=== PATIENT | male | born 1955 | race Hispanic/Latino ===

== ENCOUNTER 2017-10-13 06:08 | Day surgery (SDC) | payer MEDICARE ==
[2015-05-27 15:51] VITALS: PULSE 121
[2017-01-29 14:54] VITALS: BMI 34.4
[2017-10-13] MEDS ORDERED: Propofol 10 mg/ml Inj (20 ML) ONE (06:59)
[2017-10-13] MEDS ORDERED: Succinylcholine 200 mg/10 ml Inj IV ONE (07:00)
[2017-10-13] MEDS ORDERED: Midazolam 2 MG/2 ML VIAL ONE (07:00)
[2017-10-13] MEDS ORDERED: Rocuronium 10 mg/ml (5 ml) ONE (07:00)
[2017-10-13] MEDS ORDERED: ePHEDrine 50 mg/ml Inj ONE (07:01)
[2017-10-13] MEDS ORDERED: MethylPREDNISolone Depo 40 mg/ml Inj ONE (07:23)
[2017-10-13] MEDS ORDERED: methylPREDNISolone Depo 80 mg/ml Inj ONE (07:23)
[2017-10-13] MEDS ORDERED: Iohexol 300 100 ML IJ ONE (07:24)
[2017-10-13] MEDS ORDERED: Bacitracin Ointment 30 GM TUBE ONE (07:24)
[2017-10-13] MEDS ORDERED: Lidocaine 1% Inj (20ml) ONE (07:24)
[2017-10-13] MEDS ORDERED: Bupivacaine 0.5% Inj(30mL) ONE (07:24)
[2017-10-13 09:58] LABS: FLUID TYPE SYNOVIAL FLUID
[2017-10-13] MEDS: Lactated Ringer's 1,000 ML IV ONE (10:27)
[2017-10-13 10:30] LABS: SF GROSS APPEARANCE CLOUDY (CLEAR); SYNOVIAL FLUID COMMENT BLOODY
[2017-10-13] MEDS: HYDROmorphone 0.5 mg/0.5 ml ISec IVP PRN ×3 (10:53→12:15)
[2017-10-13 11:46] LABS: SYNOVIAL FLUID MONO/MACROPHAGE 0 % (0-0)
[2017-10-13 11:50] VITALS: RESP 20
--- NOTE | 2017-10-13 12:26 | RAD ---
PROCEDURE: Fluoroscopy up to 1 hr. HISTORY: HIP ASP COMPARISON: None TECHNIQUE: Total fluoroscopic time (continuous mode) utilized during the procedure: 3.9 seconds. Total exam DLP: (mGy): 0.49. FINDINGS: Submitted images from the current procedure: 2.0 IMPRESSION: Less than 1 hr fluoroscopic time utilized during performance of the procedure.
[2017-10-13] MEDS ORDERED: Oxycodone/Acetaminophen 5/325 mg Tab PO PRN (12:49)
--- NOTE | 2017-10-13 12:53 | PCM.SURG1 ---
Surgeon's Initial Post Op Note - Surgeon's Notes Surgeon: Genny Esteban MD Van Helper: Kae HARRIS Type of Anesthesia: General Endo Anesthesia Administered By: Dr. Suresh Pre-Operative Diagnosis: Left hip wound dehiscence Operative Findings: same Post-Operative Diagnosis: smae Operation Performed: 1. Left hip I&D. 2. partial bursectomy/synovecomy. 3. Interpretation of fluoroscopic images Specimen/Specimens Removed: fluid for cx Estimated Blood Loss: EBL {In ML}: 20 Blood Products Given: N/A Drains Used: No Drains Post-Op Condition: Fair Date of Surgery/Procedure: 10/13/17 Time of Surgery/Procedure: 12:56 Results - Vital Signs Recent Vital Signs: Last Vital Signs Temp 97.1 F L 10/13/17 11:40 Pulse 76 10/13/17 11:40 Resp 20 10/13/17 11:40 BP 136/80 10/13/17 11:40 Pulse Ox 98 10/13/17 11:40 - Labs Labs: Laboratory Results - last 24 hr 10/13/17 10/13/17 08:12 09:56 Fluid Type Synovial fluid Synovial WBC 89.0 Synovial RBC 97222.0 H Synovial Neutrophils 69.0 H Synovial Lymphocytes 31.0 H Synov Monos/Macrophage 0 Synovial Fluid Comment Bloody Blood Type B POSITIVE Antibody Screen Negative BBK History Checked Patient has bt - Impressions Impression: [place] [employer]ITY MANAGER patient report reviewed, last CDS 03/2017 for percocet. Patient counseled on the risks of addiction, physical or psychological dependence, and overdose associated with opioid drugs and the danger of taking opioid drugs with alcohol and other central nervous system depressants, and cautioned patient on storage and disposal.
[2017-10-13] MEDS ORDERED: HYDROmorphone 0.5 mg/0.5 ml ISec IVP PRN (13:17)
--- NOTE | 2017-10-13 14:55 | RAD ---
PROCEDURE: Left Hip X-ray Radiographs. HISTORY: s/p hip I D, pt in PACU COMPARISON: 05/31/2015. FINDINGS: BONES: No acute findings. No evidence of orthopedic hardware failure. JOINTS: Left MIGUELITO in satisfactory position and alignment. SOFT TISSUES: Normal. OTHER FINDINGS: None. IMPRESSION: No acute findings related to/accounting for the clinical presentation.
[2017-10-13 15:17] VITALS: BP 149/82; PULSE 75; TEMP 98; O2SAT 97
--- NOTE | 2017-10-13 21:23 | OP ---
PROCEDURE DATE: 10/13/2017 PREOPERATIVE DIAGNOSES: Wound dehiscence, trochanteric bursitis of the left hip, status post complex revision left total hip replacement in 2015. POSTOPERATIVE DIAGNOSES: Wound dehiscence, trochanteric bursitis of the left hip, status post complex revision left total hip replacement in 2015. PROCEDURES: 1. Incision and drainage of the left hip. 2. Partial bursectomy and synovectomy. 3. Excision of skin, subcutaneous tissue and muscle. 4. Manipulation of the hip under anesthesia. 5. Positioning of fluoroscope interpretation of video images. SURGEON: Mau Esteban MD MANAGER DIGITAL: Macy Khanna, certified registered nursing medical receptionist medical assistant. TYPE OF ANESTHESIA: General endotracheal anesthesia. ANESTHESIA ADMINISTERED BY: Oelg Suresh MD COMPLICATIONS: No complications. DRAINS: No drains. SPECIMENS REMOVED: Fluid for biopsy and stat Gram stain and the trochanteric bursa and synovium. ESTIMATED BLOOD LOSS: Approximately 20 mL. No blood products given. POSTOPERATIVE CONDITION: Stable. TIME OF SURGERY: 12:56. OPERATIVE INDICATIONS: Philipp Padgett is a 62-year-old gentleman who presents after a complex total hip revision in 2014. The patient was doing quite well. He had developed pain in the area of the bursa and a bursitis. The bursitis caused the wound dehiscence. The patient presents today for incision and drainage. Pros, cons, risks, and benefits were discussed at length. Concept of possible later revision, possibility of deep sepsis discussed. On sequential examination, there is no evidence of deep sepsis in terms of the fact that the patient had no pain on range of motion of the hip. After having obtained informed consent, after thoroughly discussing the pros, cons, risks, and benefits of surgical approach, possibility of mechanical failure and infection, possibility of later secondary or tertiary surgery was discussed. The patient wished the surgery to be accomplished. OPERATIVE PROCEDURE: After having obtained informed consent, after having identified side, site, and procedure, and critical pause/time-out, after the satisfactory induction of the anesthetic, the patient was placed in a direct lateral decubitus position with the left side up. The left lower extremity was prepped and free draped in usual fashion for extremity surgery. After having identified side, site, and procedure, and a critical pause/time-out, under the surgeon's direction, the fluoroscope was positioned. Video images were generated and therapeutic decisions were made therefrom. The left hip is taken through a range of motion. An incision is described 3 fingerbreadths distal to the wound dehiscence and 3 fingerbreadths proximal. Skin incision is carried down through the skin and subcutaneous tissue. The skin, subcutaneous tissues, and some muscle is removed. This was sent for biopsy. Immediately underlying is the area of the trochanteric bursa. The trochanteric bursa was excised. At this point in time, the fluid was aspirated and sent for stat Gram stain with number of white cells per high-power field, aerobic, anaerobic, AFB and fungal cultures. This having been accomplished, the wound was thoroughly irrigated with the Pulsavac. Again, the hip had been manipulated and the positioning of fluoroscope interpretation of video images was accomplished. This having been accomplished, the wound was thoroughly irrigated. Closures was in layers with interrupted Vicryl and monica. Hudson Perez compression dressing was applied. Mau Esteban MD
== END 2017-10-13 16:15 | disposition home or self-care (01) ==
LOC: H.OPSURG 06:08
PROVIDERS: ATTEND Orthopaedic Surgery
DX: M25.552 Pain in left hip (principal); M70.62 Trochanteric bursitis, left hip; L92.9 Granulomatous disorder of the skin and subcutaneous tissue, unspecified; Z96.642 Presence of left artificial hip joint; I48.91 Unspecified atrial fibrillation; I10 Essential (primary) hypertension; K21.9 Gastro-esophageal reflux disease without esophagitis
CPT/HCPCS: 27043; 27062; 36415; 73502; 76000; 86850; 86900; 87015; 87070; 87075; 87101; 87116; 87206; 88305; 89051; 97161; G8978; G8979; G8980; J0330; J0690; J1170; J2001; J2250; J2405; J2704; J3010; J7030; J7120; Q9967

== ENCOUNTER 2017-10-22 11:44 | Day surgery (SDC) | payer MEDICARE ==
[2015-05-27 15:51] VITALS: PULSE 121
[2017-10-22 12:41] VITALS: BMI 34.2
[2017-10-22 12:43] VITALS: RESP 18
[2017-10-22] MEDS ORDERED: Lidocaine 1% Inj (20ml) ONE (13:39)
--- NOTE | 2017-10-22 13:58 | CP.SDSHP ---
Same Day Surgery H & P - History Proposed Procedure: PICC placement Pre-Op Diagnosis: Infection requiring rodent exterminator IV abx - Allergies Allergies: Allergies No Known Allergies Allergy (Verified 10/22/17 12:44) - Physical Exam Vital Signs: Vital Signs 10/22/17 10/22/17 12:42 12:54 Temperature 98 F Pulse Rate 78 Respiratory 18 18 Rate Blood Pressure 149/76 O2 Sat by Pulse 97 Oximetry Mental Status: Alert & Oriented x3 - Impression Impression: Pt with infection requiring picc for abx. Plan right arm picc placement Pt. Evaluated Today:Candidate for Anesthesia & Procedure: No - Date & Time Date: 10/22/17 Time: 13:25 Short Stay Discharge - Short Stay Discharge Admitting Diagnosis/Reason for Visit: IV ANTIBIOTICS TREATMENT, MRSA Disposition: REHAB FACILITY/REHAB UNIT Referrals: Billy Brown MD [Primary Care Provider] -
--- NOTE | 2017-10-22 13:59 | PCM.SURG1 ---
Surgeon's Initial Post Op Note - Surgeon's Notes Surgeon: Philipp Leger MD Quarry Worker: NONE Type of Anesthesia: Local Pre-Operative Diagnosis: Infection Operative Findings: US showed a patent right basilic vein Post-Operative Diagnosis: Infection Operation Performed: Single lumen picc, 37 cm, right basilic vein. Tip is in the SVC. Specimen/Specimens Removed: none Estimated Blood Loss: EBL {In ML}: 2 Blood Products Given: N/A Drains Used: No Drains Post-Op Condition: Fair Date of Surgery/Procedure: 10/22/17 Time of Surgery/Procedure: 13:55
--- NOTE | 2017-10-22 14:09 | VASCULAR ---
PROCEDURE: Date of procedure: 10/22/2017 Procedure: 1. Placement of a right arm PICC with ultrasound and fluoroscopic guidance, CPT 70438 2. PICC tip confirmation with spot radiograph and is in the superior vena cava Medications: 1 percent lidocaine Total Fluoro time: 4 seconds Radiation: 0.69 MGy EBL: 2 cc HISTORY: Infection requiring long-term IV antibiotics TECHNIQUE: Following informed consent and procedure time-out, the patient was placed supine on the interventional table and the right arm prepped and draped in the usual sterile fashion. Ultrasound showed a patent and compressible right basilic vein. After the skin was anesthetized with lidocaine, the basilic vein was accessed with micro micropuncture technique using ultrasound guidance. A guidewire was then advanced under fluoroscopic guidance into the superior vena cava. An image documenting ultrasound guidance for vascular access was permanently saved. The length of the single-lumen 4 Turkmen PICC was trimmed to 37 centimeters and advanced through a peel-away sheath. The PICC was position with tip of PICC confirm a spot radiograph the superior vena cava. The PICC was secured to the patient's skin. The PICC was flushed. A biopatch and sterile dressing was applied. IMPRESSION: Placement of a single-lumen 4 Turkmen PICC trimmed to 37 centimeters via right basilic vein. The tip of the PICC is confirmed with spot radiograph and is in the superior vena cava.
[2017-10-22 14:18] VITALS: BP 169/97; PULSE 77; TEMP 98.4; O2SAT 96
== END 2017-10-22 14:25 | disposition home or self-care (01) ==
LOC: H.OPSURG 11:44
PROVIDERS: ATTEND Orthopaedic Surgery
DX: Z45.2 Encounter for adjustment and management of vascular access device (principal); A49.02 Methicillin resistant Staphylococcus aureus infection, unspecified site
CPT/HCPCS: 36569; 76937; 77001; A4310; C1751

== ENCOUNTER 2017-10-24 18:16 | Inpatient (IN) | payer MEDICARE ==
[2017-10-24 18:17] VITALS: PULSE 121; BMI 34.2
[2017-10-24 21:54] LABS: BASO # 0.1 K/uL (0.0-0.2); EOS # 0.4 K/uL (0.0-0.7); EOS % 4.7 % (0.0-4.0); HEMOGLOBIN 12.3 g/dL (12.0-18.0); LYMPH # 1.9 K/uL (1.0-4.3); LYMPH % 20.1 % (20.0-40.0); MEAN CELL VOLUME 81.5 fl (80.0-94.0); MEAN CORPUSCULAR HEMOGLOBIN 26.3 pg (27.0-31.0); MEAN CORPUSCULAR HGB CONC 32.3 g/dL (33.0-37.0); MEAN PLATELET VOLUME 6.7 fl (7.2-11.7); MONO # 1.3 K/uL (0.0-0.8); MONO % 13.3 % (0.0-10.0); NEUT # 5.8 K/uL (1.8-7.0); NEUT % 60.9 % (50.0-75.0); RBC 4.68 Mil/uL (4.40-5.90); RED CELL DISTRIBUTION WIDTH 15.8 % (11.5-14.5); WHITE BLOOD COUNT 9.5 K/uL (4.8-10.8)
[2017-10-24 22:11] LABS: ALBUMIN 4.3 g/dL (3.5-5.0); ALT/SGPT 15 U/L (21-72); AST/SGOT 15 U/L (17-59); BLOOD UREA NITROGEN 13 mg/dl (9-20); CALCIUM 9.5 mg/dL (8.4-10.2); GFR AFRICAN-AMERICAN > 60; GFR NON-AFRICAN AMERICAN > 60
--- NOTE | 2017-10-24 22:15 | ED PDOC ---
Lower Extremity Pain/Injury Time Seen by Provider: 10/24/17 19:31 Chief Complaint (Nursing): Lower Extremity Problem/Injury Chief Complaint (Provider): Left Hip Replacement/Arthroplasty Additional History Per: Patient Additional Complaint(s): This is 62 y/o male with PMH of HTN, A-flutter, S/p left hip replacement/ arthroplasty sent to the ED by PMD for PRISCILLA left hip arthroplasty tomorrow and surgical clearance. Patient admits hip pain but controlled on pain medications. Denies any dizziness, SOB, chest pain, abdominal pain or urinary symptoms. Past Medical History Vital Signs: Last Vital Signs Temp 98.2 F 10/24/17 19:11 Pulse 79 10/24/17 21:59 Resp 18 10/24/17 19:11 BP 160/84 H 10/24/17 21:59 Pulse Ox 99 10/24/17 19:11 - Medical History PMH: Arthritis, Cardia Arrhythmia (A-FIB), CHF, HTN, Hypercholesterolemia Denies: HIV, Chronic Kidney Disease - Surgical History Other surgeries: S/p left hip replacement - Family History Family History: States: Unknown Family Hx - Social History Current smoker - smoking cessation education provided: No Alcohol: None Drugs: Denies - Immunization History Hx Tetanus Toxoid Vaccination: Yes Hx Influenza Vaccination: Yes Hx Pneumococcal Vaccination: Yes - Home Medications Home Medications: Ambulatory Orders Medication Instructions Recorded Zolpidem Tartrate [Ambien] 5 mg PO HS #0 tab 05/31/15 Metoprolol Succinate [Toprol XL] 50 mg PO BID 10/13/17 Warfarin [Coumadin] 6 mg PO DAILY 10/13/17 oxyCODONE/Acetaminophen [Percocet 1 ea PO Q4H PRN #10 tab 10/13/17 5/325 mg Tab] - Allergies Allergies/Adverse Reactions: Allergies Allergy/AdvReac Type Severity Reaction Status Date / Time No Known Allergies Allergy Verified 10/24/17 21:25 Wells Criteria for PE - Wells Criteria for Pulmonary Embolism Clinical Signs and Symptoms of DVT: No P.E is #1 Diagnosis, or Equally Likely: No Heart Rate >100: No Immobilization at least 3 days;Surgery previous 4 weeks: Yes Previous, objectively diagnosed PE or DVT: No Hemoptysis: No Malignancy w/treatment within 6 months, or palliative: No Total Score: 1.5 Review of Systems Constitutional: Negative for: Fever Eyes: Negative for: Pain ENT: Negative for: Ear Pain Cardiovascular: Negative for: Chest Pain, Palpitations, Orthopnea Respiratory: Negative for: Cough, Shortness of Breath, Hemoptysis Gastrointestinal: Negative for: Nausea, Vomiting, Abdominal Pain Musculoskeletal: Negative for: Neck Pain, Shoulder Pain Skin: Negative for: Rash Neurological: Negative for: Weakness, Numbness, Incoordination, Change in Speech Physical Exam - Reviewed Nursing Documentation Reviewed: Yes Vital Signs Reviewed: Yes - Physical Exam Appears: Positive for: No Acute Distress Head Exam: Positive for: ATRAUMATIC, NORMAL INSPECTION, NORMOCEPHALIC Skin: Positive for: Normal Color, Warm, Dry Eye Exam: Positive for: Normal appearance ENT: Positive for: Normal ENT Inspection Neck: Positive for: Normal Cardiovascular/Chest: Positive for: Regular Rate, Rhythm, Chest Non Tender Respiratory: Positive for: Normal Breath Sounds Gastrointestinal/Abdominal: Positive for: Normal Exam Back: Positive for: Normal Inspection Extremity: Positive for: Other (S/p left hip arthroplasy wound ) - Laboratory Results Result Diagrams: 10/24/17 21:45 10/24/17 21:45 - ECG O2 Sat by Pulse Oximetry: 99 - Progress ED Course And Treament: 62 y/o male for PRISCILLA left hip arthroplasty tomorrow - CBC, CMP, PT/PTT, UA - ESR - Type&Screen - NPO after Midnight - EKG, CXR - Hip 2V Xray - Warfarin held - Vanco, Metoprolol and Percocet given - Consult: Ortho, Cardio, ID - Admit to the floor, Case discussed with Dr. Hankins Case discussed with Dr. Prater Medical Decision Making Medical Decision Making: S/P left hip replacement/arthroplasty L hip non healing wound post op Disposition - Clinical Impression Clinical Impression: Hip pain, Status post left hip replacement, Left hip postoperative wound infection - Patient ED Disposition Is Patient to be Admitted: Yes Discussed With : Andrey Hankins Doctor Will See Patient In The: ED - Disposition Disposition Time: 22:54 Condition: STABLE
[2017-10-24 22:22] LABS: URINE BILIRUBIN NEGATIVE (NEGATIVE); URINE BLOOD NEGATIVE (NEGATIVE); URINE CLARITY SLIGHTY-CLOUDY (Clear); URINE COLOR STRAW (YELLOW); URINE GLUCOSE (UA) NEG (Normal); URINE LEUKOCYTE ESTERASE NEG Leu/uL (Negative); URINE NITRATE NEGATIVE (NEGATIVE); URINE PROTEIN 30 mg/dL (NEGATIVE); URINE UROBILINOGEN 0.2-1.0 mg/dL (0.2-1.0)
[2017-10-24] MEDS ORDERED: Oxycodone/Acetaminophen 5/325 mg Tab PO STA (22:24)
--- NOTE | 2017-10-24 22:26 | CP.PCM.HP ---
History of Present Illness - History of Present Illness History of Present Illness: CC: L hip non healing wound post op HPI: This is a 62 y/o male with a flutter on coumadin and HTN who comes in for likely revision of L MIGUELITO due to infection. Patient states he had L hip scraped 1 week ago, was doing well until a few days ago with the hip wound opened and began draining. Denies f/c/n/v/d. Denies CP/SOB. Pain is controlled. Normally patient is functional and capable of doing ADLs prior to the current illness. ROS: 14 systems reviewed, negative other than HPI MHx: A flutter on coumadin, HTN SHx: L hip replacement, revision; hemorrhoidectomy Allergies: Some abx, but patient cannot remember Medications: as per med rec Family Hx: Reviewed, no significant findings Social Hx: Lives at home with family, no significant tobacco or EtOH use Surrogate: , info on chart Present on Admission - Present on Admission Any Indicators Present on Admission: No Past Patient History - Infectious Disease Hx of Infectious Diseases: None - Tetanus Immunizations Tetanus Immunization: Unknown - Past Medical History & Family History Past Medical History?: Yes - Past Social History Smoking Status: Never Smoked - CARDIAC Hx Cardia Arrhythmia: Yes (A-FIB) Hx Congestive Heart Failure: Yes Hx Hypercholesterolemia: Yes Hx Hypertension: Yes - PULMONARY Hx Respiratory Disorders: No - NEUROLOGICAL Hx Neurological Disorder: No - HEENT Hx HEENT Problems: No - RENAL Hx Chronic Kidney Disease: No - ENDOCRINE/METABOLIC Hx Endocrine Disorders: No - HEMATOLOGICAL/ONCOLOGICAL Hx Human Immunodeficiency Virus (HIV): No - INTEGUMENTARY Hx Dermatological Problems: No - MUSCULOSKELETAL/RHEUMATOLOGICAL Hx Arthritis: Yes - GASTROINTESTINAL Hx Gastrointestinal Disorders: No Hx Hemorrhoids: Yes - GENITOURINARY/GYNECOLOGICAL Hx Genitourinary Disorders: No - PSYCHIATRIC Hx Substance Use: No - SURGICAL HISTORY Hx Surgeries: Yes Hx Angiogram: Yes (2007) Hx Cardiac Catheterization: Yes (THERMAL ABLATION IN [place] 5 YRS. AGO) Hx Joint Replacement: Yes (LEFT THR 2008) Hx Orthopedic Surgery: Yes Other/Comment: CARDIAC ABLATION MARCH 2015 .HEMORROIDECTOMY. REVISION LEFT HIP - ANESTHESIA Hx Anesthesia: Yes Hx Anesthesia Reactions: No Hx Malignant Hyperthermia: No Meds Allergies/Adverse Reactions: Allergies Allergy/AdvReac Type Severity Reaction Status Date / Time No Known Allergies Allergy Verified 10/24/17 21:25 Physical Exam - Constitutional Appears: No Acute Distress - Head Exam Head Exam: ATRAUMATIC, NORMOCEPHALIC - Eye Exam Eye Exam: EOMI, PERRL - ENT Exam ENT Exam: Mucous Membranes Moist - Neck Exam Neck exam: Positive for: Full Rom - Respiratory Exam Respiratory Exam: Clear to Auscultation Bilateral, NORMAL BREATHING PATTERN - Cardiovascular Exam Cardiovascular Exam: REGULAR RHYTHM, +S1, +S2 - GI/Abdominal Exam GI & Abdominal Exam: Normal Bowel Sounds, Soft - Extremities Exam Additional comments: L hip wound under dressing with drainage - Neurological Exam Neurological exam: Alert, CN II-XII Intact, Oriented x3 - Psychiatric Exam Psychiatric exam: Normal Affect, Normal Mood - Skin Skin Exam: Warm (area around wound with drainage) Results - Vital Signs Recent Vital Signs: Last Vital Signs Temp 98.2 F 10/24/17 19:11 Pulse 79 10/24/17 21:59 Resp 18 10/24/17 19:11 BP 160/84 H 10/24/17 21:59 Pulse Ox 99 10/24/17 22:15 - Labs Result Diagrams: 10/24/17 21:45 10/24/17 21:45 Labs: Laboratory Results - last 24 hr 10/24/17 10/24/17 10/24/17 21:14 21:45 21:45 WBC 9.5 RBC 4.68 Hgb 12.3 Hct 38.2 MCV 81.5 D MCH 26.3 L MCHC 32.3 L RDW 15.8 H Plt Count 400 D MPV 6.7 L Neut % (Auto) 60.9 Lymph % (Auto) 20.1 [place] % (Auto) 13.3 H Eos % (Auto) 4.7 H Baso % (Auto) 1.0 Neut # (Auto) 5.8 Lymph # (Auto) 1.9 [place] # (Auto) 1.3 H Eos # (Auto) 0.4 Baso # (Auto) 0.1 Sodium 143 Potassium 4.1 Chloride 102 Carbon Dioxide 27 Anion Gap 18 BUN 13 Creatinine 0.8 Est GFR ( Amer) > 60 Est GFR (Non-Af Amer) > 60 Random Glucose 111 H Calcium 9.5 Total Bilirubin 0.4 AST 15 L ALT 15 L D Alkaline Phosphatase 93 Total Protein 8.8 H Albumin 4.3 Globulin 4.5 H Albumin/Globulin Ratio 1.0 BBK History Checked Patient has bt - Imaging and Cardiology Chest x-ray Status: Image reviewed by me Assessment & Plan (1) Left hip prosthetic joint infection Assessment and Plan: 62 y/o male presenting with L hip non healing wound/infection. Pending OR in AM. 1) Left hip wound infection -Continue Vanco IV -Pain control per scale -Hold coumadin -NPO -ID consult (Yoel) in AM -Cardiology pre-op consult in AM -Plan for OR in AM with Carlito 2) A flutter -Hold coumadin -Cont Metoprolol 3) DVT PPx -- none for now; patient was on coumadin, INR still elevated Status: Acute (2) Atrial flutter Status: Chronic Priority: Medium (3) DVT prophylaxis Status: Acute Priority: Medium
[2017-10-24 22:28] LABS: INR 1.1 (0.9-1.2); PARTIAL THROMBOPLASTIN TIME 33.6 Seconds (25.6-37.1); PROTHROMBIN TIME 12.5 Seconds (9.8-13.1)
[2017-10-24] MEDS ORDERED: Oxycodone/Acetaminophen 5/325 mg Tab ONE (22:59)
[2017-10-25 06:39] LABS: BASO # 0.1 K/uL (0.0-0.2); BASO % 1.3 % (0.0-2.0); EOS # 0.3 K/uL (0.0-0.7); EOS % 5.8 % (0.0-4.0); HEMOGLOBIN 11.4 g/dL (12.0-18.0); LYMPH # 1.7 K/uL (1.0-4.3); LYMPH % 27.7 % (20.0-40.0); MEAN CELL VOLUME 80.4 fl (80.0-94.0); MEAN CORPUSCULAR HEMOGLOBIN 26.7 pg (27.0-31.0); MEAN CORPUSCULAR HGB CONC 33.2 g/dL (33.0-37.0); MEAN PLATELET VOLUME 6.8 fl (7.2-11.7); MONO # 0.9 K/uL (0.0-0.8); NEUT % 50.2 % (50.0-75.0); NRBC % 0.1 % (0.0-0.0); RBC 4.28 Mil/uL (4.40-5.90); RED CELL DISTRIBUTION WIDTH 16.2 % (11.5-14.5); WHITE BLOOD COUNT 6.1 K/uL (4.8-10.8)
[2017-10-25 06:52] LABS: BLOOD UREA NITROGEN 10 mg/dl (9-20); CALCIUM 8.9 mg/dL (8.4-10.2); GFR AFRICAN-AMERICAN > 60; GFR NON-AFRICAN AMERICAN > 60
[2017-10-25] MEDS: Metoprolol Succinate 50 mg XL Tab PO SCH ×2 (08:40→16:29)
--- NOTE | 2017-10-25 09:07 | CP.PCM.CON ---
History of Present Illness - History of Present Illness History of Present Illness: THE PATIENT IS A 62 YEAR OLD MALE WHO HAD A LEFT THR IN 2008 FOLLOWED BY A REVISION IN 2009 WITH RECURRENT INFECTIONS OF THE LEFT HIP INCLUDING MRSA INFECTIONS. THE PATIENT STATES THAT THE LEFT HIP WAS CLEANED OUT ABOUT 12 DAYS AGO BUT THE WOUND NOW OPENED ABOUT THREE DAYS AGO AND IS DRAINING AND IS PRESENTLY READMITTED FOR SURGERY AGAIN. HE ALSO HAS A HISTORY OF ATRIAL FLUTTER AND HYPERTENSION. HE WAS TREADED WITH WARFARIN WHICH IS BEING HELD. HE DENIES CHEST PAIN OR CAD. Past Patient History - Infectious Disease Hx of Infectious Diseases: None - Tetanus Immunizations Tetanus Immunization: Unknown - Past Medical History & Family History Past Medical History?: Yes - Past Social History Smoking Status: Heavy Smoker > 10 Cigarettes Daily - CARDIAC Hx Cardiac Disorders: Yes Hx Hypercholesterolemia: Yes Hx Hypertension: Yes - PULMONARY Hx Respiratory Disorders: No - NEUROLOGICAL Hx Neurological Disorder: No - HEENT Hx HEENT Problems: No - RENAL Hx Chronic Kidney Disease: No - ENDOCRINE/METABOLIC Hx Endocrine Disorders: No - HEMATOLOGICAL/ONCOLOGICAL Hx Blood Disorders: No Hx Human Immunodeficiency Virus (HIV): No - INTEGUMENTARY Hx Dermatological Problems: No - MUSCULOSKELETAL/RHEUMATOLOGICAL Hx Musculoskeletal Disorders: Yes Hx Arthritis: Yes Hx Falls: No - GASTROINTESTINAL Hx Gastrointestinal Disorders: Yes Hx Hemorrhoids: Yes - GENITOURINARY/GYNECOLOGICAL Hx Genitourinary Disorders: No - PSYCHIATRIC Hx Psychophysiologic Disorder: No Hx Substance Use: No - SURGICAL HISTORY Hx Surgeries: Yes Hx Angiogram: Yes (2007) Hx Cardiac Catheterization: Yes (THERMAL ABLATION IN [place] 5 YRS. AGO) Hx Joint Replacement: Yes (LEFT THR 2008) Hx Orthopedic Surgery: Yes Other/Comment: CARDIAC ABLATION MARCH 2015 .HEMORROIDECTOMY. REVISION LEFT HIP - ANESTHESIA Hx Anesthesia: Yes Hx Anesthesia Reactions: No Hx Malignant Hyperthermia: No Has any member of the family had a problem w/ anesthesia?: No Meds Allergies/Adverse Reactions: Allergies Allergy/AdvReac Type Severity Reaction Status Date / Time No Known Allergies Allergy Verified 10/24/17 21:25 - Medications Medications: Current Medications Vancomycin HCl 1 gm/ Sodium (Chloride) 250 mls @ 166.667 mls/hr IVPB Q12 PRISCILLA PRN Reason: Protocol Last Admin: 10/25/17 08:40 Dose: 166.667 mls/hr Metoprolol Succinate (Toprol Xl) 50 mg PO BID [facility] Last Admin: 10/25/17 08:40 Dose: 50 mg Morphine Sulfate (Morphine) 1 mg IVP Q4 PRN PRN Reason: Pain, Mild (1-3) Morphine Sulfate (Morphine) 2 mg IVP Q4 PRN PRN Reason: Pain, moderate (4-7) Physical Exam - Respiratory Exam Respiratory Exam: Clear to Auscultation Bilateral - Cardiovascular Exam Cardiovascular Exam: REGULAR RHYTHM, +S1, +S2 - Additional Findings Additional findings: EKG ATRIAL FLLUTTER WITH MODERATE RATE INR 1.1 Results - Vital Signs Recent Vital Signs: Last Vital Signs Temp 97.7 F 10/25/17 08:31 Pulse 76 10/25/17 08:40 Resp 19 10/25/17 08:31 BP 154/84 H 10/25/17 08:40 Pulse Ox 96 10/25/17 08:31 - Labs Result Diagrams: 10/25/17 05:30 10/25/17 05:30 Labs: Laboratory Results - last 24 hr 10/24/17 10/24/17 10/24/17 21:14 21:45 21:45 WBC 9.5 RBC 4.68 Hgb 12.3 Hct 38.2 MCV 81.5 D MCH 26.3 L MCHC 32.3 L RDW 15.8 H Plt Count 400 D MPV 6.7 L Neut % (Auto) 60.9 Lymph % (Auto) 20.1 Brooke % (Auto) 13.3 H Eos % (Auto) 4.7 H Baso % (Auto) 1.0 Neut # (Auto) 5.8 Lymph # (Auto) 1.9 Brooke # (Auto) 1.3 H Eos # (Auto) 0.4 Baso # (Auto) 0.1 ESR 81 H PT 12.5 INR 1.1 APTT 33.6 Sodium Potassium Chloride Carbon Dioxide Anion Gap BUN Creatinine Est GFR ( Amer) Est GFR (Non-Af Amer) Random Glucose Calcium Total Bilirubin AST ALT Alkaline Phosphatase Total Protein Albumin Globulin Albumin/Globulin Ratio Urine Color Urine Clarity Urine pH Ur Specific [place] Urine Protein Urine Glucose (UA) Urine Ketones Urine Blood Urine Nitrate Urine Bilirubin Urine Urobilinogen Ur Leukocyte Esterase Urine RBC (Auto) Urine Microscopic WBC Blood Type B POSITIVE Antibody Screen Negative BBK History Checked Patient has bt 10/24/17 10/24/17 10/25/17 21:45 21:50 05:30 WBC 6.1 RBC 4.28 L Hgb 11.4 L Hct 34.5 L MCV 80.4 MCH 26.7 L MCHC 33.2 RDW 16.2 H Plt Count 346 MPV 6.8 L Neut % (Auto) 50.2 Lymph % (Auto) 27.7 Brooke % (Auto) 15.0 H Eos % (Auto) 5.8 H Baso % (Auto) 1.3 Neut # (Auto) 3.0 Lymph # (Auto) 1.7 Brooke # (Auto) 0.9 H Eos # (Auto) 0.3 Baso # (Auto) 0.1 ESR PT INR APTT Sodium 143 Potassium 4.1 Chloride 102 Carbon Dioxide 27 Anion Gap 18 BUN 13 Creatinine 0.8 Est GFR ( Amer) > 60 Est GFR (Non-Af Amer) > 60 Random Glucose 111 H Calcium 9.5 Total Bilirubin 0.4 AST 15 L ALT 15 L D Alkaline Phosphatase 93 Total Protein 8.8 H Albumin 4.3 Globulin 4.5 H Albumin/Globulin Ratio 1.0 Urine Color Straw Urine Clarity Slighty-cloudy Urine pH 6.0 Ur Specific [place] 1.014 Urine Protein 30 Urine Glucose (UA) Neg Urine Ketones Negative Urine Blood Negative Urine Nitrate Negative Urine Bilirubin Negative Urine Urobilinogen 0.2-1.0 Ur Leukocyte Esterase Neg Urine RBC (Auto) 1 Urine Microscopic WBC 1 Blood Type Antibody Screen BBK History Checked 10/25/17 10/25/17 05:30 05:30 WBC RBC Hgb Hct MCV MCH MCHC RDW Plt Count MPV Neut % (Auto) Lymph % (Auto) Brooke % (Auto) Eos % (Auto) Baso % (Auto) Neut # (Auto) Lymph # (Auto) Brooke # (Auto) Eos # (Auto) Baso # (Auto) ESR PT INR APTT 32.0 Sodium 143 Potassium 3.6 Chloride 106 Carbon Dioxide 26 Anion Gap 15 BUN 10 Creatinine 0.7 L Est GFR ( Amer) > 60 Est GFR (Non-Af Amer) > 60 Random Glucose 106 Calcium 8.9 Total Bilirubin AST ALT Alkaline Phosphatase Total Protein Albumin Globulin Albumin/Globulin Ratio Urine Color Urine Clarity Urine pH Ur Specific [place] Urine Protein Urine Glucose (UA) Urine Ketones Urine Blood Urine Nitrate Urine Bilirubin Urine Urobilinogen Ur Leukocyte Esterase Urine RBC (Auto) Urine Microscopic WBC Blood Type Antibody Screen BBK History Checked Assessment & Plan - Assessment and Plan (Free Text) Assessment: LEFT THR IN 2008 AND REVISION IN 2009 WITH RECURRENT WOUND INFECTIONS. NOW WITH WOUND OPENING AND DRAINAGE. ATRIAL FLUTTER HYPERTENSION Plan: CONTINUE TO HOLD WARFARIN CONTINUE METOPROLOL AND IV ANTIBIOTICS THE PATIENT IS CLEARED FOR SURGERY
--- NOTE | 2017-10-25 09:27 | RAD ---
HISTORY: Medical clearance COMPARISON: Comparison made with chest radiograph 05/27/2015 TECHNIQUE: Chest PA and lateral FINDINGS: Re- demonstrated is an in situ right-sided PICC line with tip in the SVC. LUNGS: Minor bibasilar atelectasis or scarring left greater than right. There also appears to be minor biapical pleural thickening PLEURA: No significant pleural effusion identified. No pneumothorax apparent. CARDIOVASCULAR: Normal. OSSEOUS STRUCTURES: Mild multilevel degenerative spondylosis of the thoracic spine. VISUALIZED UPPER ABDOMEN: Normal. OTHER FINDINGS: None. IMPRESSION: Minor bibasilar atelectasis or scarring left greater than right
[2017-10-25] MEDS ORDERED: Midazolam 2 MG/2 ML VIAL ONE (10:49)
[2017-10-25] MEDS ORDERED: Propofol 10 mg/ml Inj (20 ML) ONE (10:49)
[2017-10-25] MEDS ORDERED: Etomidate 20 mg/10ml Inj IV ONE (10:49)
[2017-10-25] MEDS ORDERED: Lidocaine 4% (Laryng-O-Jet) Kit MM ONE (10:49)
[2017-10-25] MEDS ORDERED: Rocuronium 10 mg/ml (5 ml) ONE (11:06)
[2017-10-25] MEDS ORDERED: Absorbable Gelatin Sponge Size 100 ONE (11:12)
[2017-10-25] MEDS ORDERED: Bacitracin Ointment 30 GM TUBE ONE (11:12)
[2017-10-25] MEDS ORDERED: Thrombin Topical 5,000 Int Units Spray Kit ONE (11:12)
--- NOTE | 2017-10-25 11:28 | RAD ---
PROCEDURE: Left Hip X-ray Radiographs. HISTORY: Left hip Pain. No history of recent/ related trauma provided COMPARISON: 10/13/2017 study performed status post incision and drainage. FINDINGS: BONES: Stable appearance, position of left hip arthroplasty. No evidence of orthopedic hardware failure. JOINTS: Normal. SOFT TISSUES: Normal. OTHER FINDINGS: None. IMPRESSION: No acute findings related to/accounting for the clinical presentation. No significant interval change compared to the prior examination(s).
[2017-10-25] MEDS ORDERED: Lactated Ringer's 1,000 ML IV ONE ×2 (11:30→14:00)
[2017-10-25] MEDS ORDERED: Gentamicin 80 mg/2mL Inj. ONE (12:04)
[2017-10-25 13:18] LABS: FLUID TYPE SYNOVIAL FLUID
--- NOTE | 2017-10-25 13:35 | CARD ---
APPROVED REPORT EKG Measurement Heart [id number] NC 192P [id number] <Conclusion> Atrial flutter Abnormal ECG
--- NOTE | 2017-10-25 14:04 | CP.PCM.CON ---
History of Present Illness - History of Present Illness History of Present Illness: ID: 62 yo male CVC: Draing superficial wound L HIp (trochateric bursa) HPI: 62 yo male presents several yrs s/p revision (successful) chronic dislocation THR L. mPT doing quite well until several wks ago. p[t had sustained a fall, and began draing. Pt taken to OR within last 2 wks and I+D and partial trochanteric bursectomy accomplished. Ptg treated bY ID and IV abios were administrered for MRSA. Pt presents to ER with L superficial drainage L hip. pt admitted for repeat I+D, applx abio beads and wound vac. Review of Systems - Hematologic/Lymphatic Additional comments: PT COMPLAIONS OF NO PAIN IN HIP JOINT PROPER! HAS NEVER EXHIIBITED PAIN ON rom - NO CLINICAL COMPLAINTS OF DEEP SEPSIS, JUST SUPERFICIAL DRAINAGE1 Past Patient History - Infectious Disease Hx of Infectious Diseases: None - Tetanus Immunizations Tetanus Immunization: Unknown - Past Medical History & Family History Past Medical History?: Yes - Past Social History Smoking Status: Heavy Smoker > 10 Cigarettes Daily - CARDIAC Hx Cardiac Disorders: Yes Hx Hypercholesterolemia: Yes Hx Hypertension: Yes - PULMONARY Hx Respiratory Disorders: No - NEUROLOGICAL Hx Neurological Disorder: No - HEENT Hx HEENT Problems: No - RENAL Hx Chronic Kidney Disease: No - ENDOCRINE/METABOLIC Hx Endocrine Disorders: No - HEMATOLOGICAL/ONCOLOGICAL Hx Blood Disorders: No Hx Human Immunodeficiency Virus (HIV): No - INTEGUMENTARY Hx Dermatological Problems: No - MUSCULOSKELETAL/RHEUMATOLOGICAL Hx Musculoskeletal Disorders: Yes Hx Arthritis: Yes Hx Falls: No - GASTROINTESTINAL Hx Gastrointestinal Disorders: Yes Hx Hemorrhoids: Yes - GENITOURINARY/GYNECOLOGICAL Hx Genitourinary Disorders: No - PSYCHIATRIC Hx Psychophysiologic Disorder: No Hx Substance Use: No - SURGICAL HISTORY Hx Surgeries: Yes Hx Angiogram: Yes (2007) Hx Cardiac Catheterization: Yes (THERMAL ABLATION IN [place] 5 YRS. AGO) Hx Joint Replacement: Yes (LEFT THR 2008) Hx Orthopedic Surgery: Yes Other/Comment: CARDIAC ABLATION MARCH 2015 .HEMORROIDECTOMY. REVISION LEFT HIP - ANESTHESIA Hx Anesthesia: Yes Hx Anesthesia Reactions: No Hx Malignant Hyperthermia: No Has any member of the family had a problem w/ anesthesia?: No Meds Allergies/Adverse Reactions: Allergies Allergy/AdvReac Type Severity Reaction Status Date / Time No Known Allergies Allergy Verified 10/24/17 21:25 - Medications Medications: Current Medications Vancomycin HCl 1 gm/ Sodium (Chloride) 250 mls @ 166.667 mls/hr IVPB Q12 PRISCILLA PRN Reason: Protocol Last Admin: 10/25/17 08:40 Dose: 166.667 mls/hr Metoprolol Succinate (Toprol Xl) 50 mg PO BID [facility] Last Admin: 10/25/17 08:40 Dose: 50 mg Morphine Sulfate (Morphine) 1 mg IVP Q4 PRN PRN Reason: Pain, Mild (1-3) Morphine Sulfate (Morphine) 2 mg IVP Q4 PRN PRN Reason: Pain, moderate (4-7) Physical Exam - ENT Exam Additional comments: Xray- reveals acceptable position of revision nreplacement construct no evdince for sepsis/osteomyelitis/loosening - Additional Findings Additional findings: oBJECTIVE EXAM sYSYTEMIC- NO CLINICAL EVIDENCE FOR SYSTEMIC SEPSIS REMAINDER OF SYSTEMIC EXAM PER ADMITTING PHYSICIAN mUSCUOLOSKELETAL PT STANDS ERCT. AMBULATING WITHOUT PAIN WITHOUT ambulkation device pt with dehiscience of previous wound drainage from same Results - Vital Signs Recent Vital Signs: Last Vital Signs Temp 97.7 F 10/25/17 08:31 Pulse 76 10/25/17 08:40 Resp 19 10/25/17 08:31 BP 154/84 H 10/25/17 08:40 Pulse Ox 96 10/25/17 08:31 - Labs Result Diagrams: 10/25/17 05:30 10/25/17 05:30 Labs: Laboratory Results - last 24 hr 10/24/17 10/24/17 10/24/17 21:14 21:45 21:45 WBC 9.5 RBC 4.68 Hgb 12.3 Hct 38.2 MCV 81.5 D MCH 26.3 L MCHC 32.3 L RDW 15.8 H Plt Count 400 D MPV 6.7 L Neut % (Auto) 60.9 Lymph % (Auto) 20.1 Yell % (Auto) 13.3 H Eos % (Auto) 4.7 H Baso % (Auto) 1.0 Neut # (Auto) 5.8 Lymph # (Auto) 1.9 Yell # (Auto) 1.3 H Eos # (Auto) 0.4 Baso # (Auto) 0.1 ESR 81 H PT 12.5 INR 1.1 APTT 33.6 Sodium Potassium Chloride Carbon Dioxide Anion Gap BUN Creatinine Est GFR ( Amer) Est GFR (Non-Af Amer) Random Glucose Calcium Total Bilirubin AST ALT Alkaline Phosphatase Total Protein Albumin Globulin Albumin/Globulin Ratio Urine Color Urine Clarity Urine pH Ur Specific [place] Urine Protein Urine Glucose (UA) Urine Ketones Urine Blood Urine Nitrate Urine Bilirubin Urine Urobilinogen Ur Leukocyte Esterase Urine RBC (Auto) Urine Microscopic WBC Fluid Type Blood Type B POSITIVE Antibody Screen Negative Crossmatch See Detail BBK History Checked Patient has bt 10/24/17 10/24/17 10/25/17 21:45 21:50 05:30 WBC 6.1 RBC 4.28 L Hgb 11.4 L Hct 34.5 L MCV 80.4 MCH 26.7 L MCHC 33.2 RDW 16.2 H Plt Count 346 MPV 6.8 L Neut % (Auto) 50.2 Lymph % (Auto) 27.7 Yell % (Auto) 15.0 H Eos % (Auto) 5.8 H Baso % (Auto) 1.3 Neut # (Auto) 3.0 Lymph # (Auto) 1.7 Yell # (Auto) 0.9 H Eos # (Auto) 0.3 Baso # (Auto) 0.1 ESR PT INR APTT Sodium 143 Potassium 4.1 Chloride 102 Carbon Dioxide 27 Anion Gap 18 BUN 13 Creatinine 0.8 Est GFR ( Amer) > 60 Est GFR (Non-Af Amer) > 60 Random Glucose 111 H Calcium 9.5 Total Bilirubin 0.4 AST 15 L ALT 15 L D Alkaline Phosphatase 93 Total Protein 8.8 H Albumin 4.3 Globulin 4.5 H Albumin/Globulin Ratio 1.0 Urine Color Straw Urine Clarity Slighty-cloudy Urine pH 6.0 Ur Specific [place] 1.014 Urine Protein 30 Urine Glucose (UA) Neg Urine Ketones Negative Urine Blood Negative Urine Nitrate Negative Urine Bilirubin Negative Urine Urobilinogen 0.2-1.0 Ur Leukocyte Esterase Neg Urine RBC (Auto) 1 Urine Microscopic WBC 1 Fluid Type Blood Type Antibody Screen Crossmatch BBK History Checked 10/25/17 10/25/17 10/25/17 05:30 05:30 13:00 WBC RBC Hgb Hct MCV MCH MCHC RDW Plt Count MPV Neut % (Auto) Lymph % (Auto) Yell % (Auto) Eos % (Auto) Baso % (Auto) Neut # (Auto) Lymph # (Auto) Yell # (Auto) Eos # (Auto) Baso # (Auto) ESR PT INR APTT 32.0 Sodium 143 Potassium 3.6 Chloride 106 Carbon Dioxide 26 Anion Gap 15 BUN 10 Creatinine 0.7 L Est GFR ( Amer) > 60 Est GFR (Non-Af Amer) > 60 Random Glucose 106 Calcium 8.9 Total Bilirubin AST ALT Alkaline Phosphatase Total Protein Albumin Globulin Albumin/Globulin Ratio Urine Color Urine Clarity Urine pH Ur Specific [place] Urine Protein Urine Glucose (UA) Urine Ketones Urine Blood Urine Nitrate Urine Bilirubin Urine Urobilinogen Ur Leukocyte Esterase Urine RBC (Auto) Urine Microscopic WBC Fluid Type Synovial fluid Blood Type Antibody Screen Crossmatch BBK History Checked Assessment & Plan - Assessment and Plan (Free Text) Assessment: A- superficial drainage s/p complex revision THR P- to OR for incision/drainage- possible bursectomy- possible insertin of abio beads- possible arthrogram- applx [place] wound vac Concept of possible later explant discussed PT ADAMNTLY REFUSES [id number] REMOVAL at this point in time; he wishes to attempt a further debridement, insertion of abio beads, wound vac and 6 wks IV vancomycin
--- NOTE | 2017-10-25 14:10 | PCM.SURG1 ---
Surgeon's Initial Post Op Note - Surgeon's Notes Surgeon: Carlito Summer Clerk: GLENDA Bartholomew Type of Anesthesia: General Endo Anesthesia Administered By: Dr Desir Pre-Operative Diagnosis: sup[erficial drainge L hip/ s/p L hip wound dehiscience Operative Findings: as above-NO COMMUNICATION WITH HIP JOINT!! Post-Operative Diagnosis: ABOVE. persistent trochanteric bursitis. superficial L hip wound drainage Operation Performed: Incision drainage L hip. partial excision L trochanteric bursa. aspiration L hIP. INSERTIOJN abio imreganted beads. applx woiund vac ( [place]). excision skin/subcutaneous tissue /muscle Specimen/Specimens Removed: as above. troichateric bursa. hip joint aspirate ( ? contamiunation of needle on way to hip joint)( - clear /yellowish non purulent fluid onbtained Estimated Blood Loss: EBL {In ML}: 15 Blood Products Given: N/A Drains Used: Wound Vac Post-Op Condition: Good Date of Surgery/Procedure: 10/25/17 Time of Surgery/Procedure: 12:45 (time in room 1130/anaesthesia indcution time)
[2017-10-25] MEDS ORDERED: Lactated Ringer's 1,000 ML IV SCH (14:30)
[2017-10-25 14:47] LABS: SF GROSS APPEARANCE CLOUDY (CLEAR); SYNOVIAL FLUID COMMENT SLIGHTY BLOODY
[2017-10-25 14:51] LABS: SYNOVIAL FLUID MONO/MACROPHAGE 11 % (0-0)
--- NOTE | 2017-10-25 17:08 | RAD ---
PROCEDURE: Fluoroscopy HISTORY: LEFT HIP COMPARISON: None TECHNIQUE: Standard protocol for this study/examination. FINDINGS: Total fluoroscopic time (continuous mode) utilized during the procedure: 9.9 seconds. IMPRESSION: Total exam DLP: 1.25 mGy
--- NOTE | 2017-10-25 19:46 | CP.PCM.PN ---
Subjective - Date & Time of Evaluation Date of Evaluation: 10/25/17 Time of Evaluation: 19:30 - Subjective Subjective: Patient seen and examined. Admitted pain on left hip was bearable. Objective - Vital Signs/Intake and Output Vital Signs (last 24 hours): Temp Pulse Resp BP Pulse Ox 98.1 F 77 20 150/83 97 10/25/17 18:00 10/25/17 18:00 10/25/17 18:00 10/25/17 18:00 10/25/17 18:00 Intake and Output: 10/25/17 10/26/17 18:59 06:59 Intake Total 1100 Balance 1100 - Medications Medications: Current Medications Vancomycin HCl 1 gm/ Sodium (Chloride) 250 mls @ 166.667 mls/hr IVPB Q12 PRISCILLA PRN Reason: Protocol Last Admin: 10/25/17 08:40 Dose: 166.667 mls/hr Lactated Ringer's (Lactated Ringer's) 1,000 mls @ 100 mls/hr IV .Q10H [facility] Metoprolol Succinate (Toprol Xl) 50 mg PO BID [facility] Last Admin: 10/25/17 16:29 Dose: 50 mg Morphine Sulfate (Morphine) 1 mg IVP Q4 PRN PRN Reason: Pain, Mild (1-3) Morphine Sulfate (Morphine) 2 mg IVP Q4 PRN PRN Reason: Pain, moderate (4-7) Last Admin: 10/25/17 15:40 Dose: 2 mg - Labs Labs: 10/25/17 05:30 10/25/17 05:30 PT 12.5 Seconds (9.8-13.1) 10/24/17 21:45 INR 1.1 (0.9-1.2) 10/24/17 21:45 APTT 32.0 Seconds (25.6-37.1) 10/25/17 05:30 - Constitutional Appears: No Acute Distress - Head Exam Head Exam: ATRAUMATIC - Eye Exam Eye Exam: absent: Scleral icterus - ENT Exam ENT Exam: Mucous Membranes Moist - Neck Exam Neck Exam: absent: Meningismus - Respiratory Exam Respiratory Exam: absent: Rhonchi, Wheezes, Respiratory Distress - Cardiovascular Exam Cardiovascular Exam: REGULAR RHYTHM, +S1, +S2 - GI/Abdominal Exam GI & Abdominal Exam: Soft. absent: Tenderness - Rectal Exam Rectal Exam: Deferred - Extremities Exam Extremities Exam: absent: Full ROM (left hip with limited movement post surgery) - Neurological Exam Neurological Exam: Alert, Oriented x3 - Psychiatric Exam Psychiatric exam: Normal Affect - Skin Skin Exam: Dry, Intact Assessment and Plan - Assessment and Plan (Free Text) Assessment: 62 yo male with history of AFlutter and HTN came in for revision of left THR because of infection. He claimed that surgical wound on left hip, opened and started draining liquid. 1. Left hip wound infection on IV Vanco 1gm Q 12hrs pain manageable Coumadin on hold ID consult with Dr. Diallo PT consult for evaluation and management 2. A Flutter rate controlled hold Coumadin on Metoprolol 3 DVT Prophylaxis Coumadin on hold
--- NOTE | 2017-10-26 05:19 | CON ---
INFECTIOUS DISEASE CONSULT DATE: HISTORY OF PRESENT ILLNESS: The patient is a 62-year-old male who was admitted via the emergency room on 10/24/2017, he came to the emergency room for possible revision of left total hip replacement. The patient had original replacement done in June. The patient was noted to have dehiscence of the wound and began to have some drainage. The patient went to the operating room today where he had a clean out, incision and drainage done of the left hip. He had a partial excision of the left trochanteric bursa, aspiration of the left hip, and cultures were taken. He had insertion of antibiotic-impregnated beads. Wound VAC was also applied. The patient when discussing with him, he denied any history of fever or chills. PHYSICAL EXAMINATION: GENERAL: He is alert, cooperative and oriented to time and place. HEENT: Within normal limits. NECK: Supple. LUNGS: Clear. HEART: Regular sinus rhythm. He has had in the past in relationship to his heart, cardiac catheterization with thermal ablation in [place] 5 years ago, had left hip done in 2008, and had revision of left hip also done in 2009. Left hip has wound VAC placed and bandaged, was unable to evaluate. We will discuss with Dr. Esteban. 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 Esteban's office. At the present time, he should be treated with vancomycin 1 g q. 12 hours for at least 4 to 6 weeks, most likely 6 weeks. I have ordered serum procalcitonin levels, sed rate, and vancomycin trough levels. Chong Diallo MD MTDJoann
[2017-10-26 06:27] LABS: HEMOGLOBIN 11.6 g/dL (12.0-18.0); MEAN CELL VOLUME 80.3 fl (80.0-94.0); MEAN CORPUSCULAR HEMOGLOBIN 26.7 pg (27.0-31.0); MEAN CORPUSCULAR HGB CONC 33.3 g/dL (33.0-37.0); RBC 4.33 Mil/uL (4.40-5.90); RED CELL DISTRIBUTION WIDTH 16.3 % (11.5-14.5); WHITE BLOOD COUNT 8.4 K/uL (4.8-10.8)
[2017-10-26 06:36] LABS: INR 1.3 (0.9-1.2)
--- NOTE | 2017-10-26 08:30 | CP.PCM.PN ---
Subjective - Date & Time of Evaluation Date of Evaluation: 10/26/17 Time of Evaluation: 08:25 - Subjective Subjective: S- pt comfortable at bedrest/minimal discomfort Objective - Vital Signs/Intake and Output Vital Signs (last 24 hours): Temp Pulse Resp BP Pulse Ox 98.2 F 76 18 139/83 96 10/26/17 08:27 10/26/17 08:27 10/26/17 08:27 10/26/17 08:27 10/26/17 08:27 Intake and Output: 10/26/17 10/26/17 06:59 18:59 Intake Total 400 Balance 400 - Medications Medications: Current Medications Vancomycin HCl 1 gm/ Sodium (Chloride) 250 mls @ 166.667 mls/hr IVPB Q12 PRISCILLA PRN Reason: Protocol Last Admin: 10/25/17 21:20 Dose: 166.667 mls/hr Lactated Ringer's (Lactated Ringer's) 1,000 mls @ 100 mls/hr IV .Q10H [facility] Last Admin: 10/26/17 01:20 Dose: Not Given Metoprolol Succinate (Toprol Xl) 50 mg PO BID [facility] Last Admin: 10/25/17 16:29 Dose: 50 mg Morphine Sulfate (Morphine) 1 mg IVP Q4 PRN PRN Reason: Pain, Mild (1-3) Last Admin: 10/26/17 05:49 Dose: 1 mg Morphine Sulfate (Morphine) 2 mg IVP Q4 PRN PRN Reason: Pain, moderate (4-7) Last Admin: 10/25/17 20:18 Dose: 2 mg Zolpidem Tartrate (Ambien) 5 mg PO HS PRN PRN Reason: Insomnia Last Admin: 10/25/17 22:52 Dose: 5 mg - Labs Labs: 10/26/17 05:45 10/25/17 05:30 PT 15.0 Seconds (9.8-13.1) H 10/26/17 05:45 INR 1.3 (0.9-1.2) H 10/26/17 05:45 APTT 32.0 Seconds (25.6-37.1) 10/25/17 05:30 - Additional Findings Additional findings: Objective systemic- wnl Musculoskeletal stance/gait- defrred Hip wound benign N/V intact no gross/progressive defcits wound benign Obj- lab stat gm stain results reviewed Assessment and Plan - Assessment and Plan (Free Text) Assessment: A- s/p I+D superficial septic bursitis P- discussed with pt at length PT REFUSES EXPLANT AT THIS TIME;POSSIBILITY OF LATER EXPLANT DICUSSED- trial of I+D an dinsertion of abio pellets and iv abios to be given a six wk trial Possibility of later explant and reinsertion of abio impreganted spacer discussed
--- NOTE | 2017-10-26 09:24 | CP.PCM.PN ---
Subjective - Date & Time of Evaluation Date of Evaluation: 10/26/17 Time of Evaluation: 09:15 - Subjective Subjective: NO NEW COMPLAINTS Objective - Vital Signs/Intake and Output Vital Signs (last 24 hours): Temp Pulse Resp BP Pulse Ox 98.2 F 76 18 139/83 96 10/26/17 08:27 10/26/17 08:27 10/26/17 08:27 10/26/17 08:27 10/26/17 08:27 Intake and Output: 10/26/17 10/26/17 06:59 18:59 Intake Total 400 Balance 400 - Medications Medications: Current Medications Vancomycin HCl 1 gm/ Sodium (Chloride) 250 mls @ 166.667 mls/hr IVPB Q12 PRISCILLA PRN Reason: Protocol Last Admin: 10/25/17 21:20 Dose: 166.667 mls/hr Lactated Ringer's (Lactated Ringer's) 1,000 mls @ 100 mls/hr IV .Q10H [facility] Last Admin: 10/26/17 01:20 Dose: Not Given Metoprolol Succinate (Toprol Xl) 50 mg PO BID [facility] Last Admin: 10/25/17 16:29 Dose: 50 mg Morphine Sulfate (Morphine) 1 mg IVP Q4 PRN PRN Reason: Pain, Mild (1-3) Last Admin: 10/26/17 05:49 Dose: 1 mg Morphine Sulfate (Morphine) 2 mg IVP Q4 PRN PRN Reason: Pain, moderate (4-7) Last Admin: 10/25/17 20:18 Dose: 2 mg Zolpidem Tartrate (Ambien) 5 mg PO HS PRN PRN Reason: Insomnia Last Admin: 10/25/17 22:52 Dose: 5 mg - Labs Labs: 10/26/17 05:45 10/25/17 05:30 PT 15.0 Seconds (9.8-13.1) H 10/26/17 05:45 INR 1.3 (0.9-1.2) H 10/26/17 05:45 APTT 32.0 Seconds (25.6-37.1) 10/25/17 05:30 - Respiratory Exam Respiratory Exam: Clear to Ausculation Bilateral - Cardiovascular Exam Cardiovascular Exam: REGULAR RHYTHM, +S1, +S2 Assessment and Plan - Assessment and Plan (Free Text) Assessment: CHRONIC ATRIAL FIBRILLATION HYPERTENSION Plan: CONTINUE METOPROLOL AN VANCOMYCIN
[2017-10-26] MEDS: Metoprolol Succinate 50 mg XL Tab PO SCH ×2 (09:34→16:57)
--- NOTE | 2017-10-26 11:45 | RAD ---
PROCEDURE: Left Hip X-ray Radiographs. HISTORY: s/p I L hip/irrigation, debridement COMPARISON: Left hip radiographs dated 10/24/2017. FINDINGS: There has been prior total left hip arthroplasty. Prosthetic components remain in good alignment. There has been interval surgery with placement of radiopaque beads in the soft tissues superficial to the prosthesis. No other significant interval changes identified. IMPRESSION: Findings as above.
--- NOTE | 2017-10-26 13:20 | CP.PCM.PN ---
Subjective - Date & Time of Evaluation Date of Evaluation: 10/26/17 Time of Evaluation: 12:00 - Subjective Subjective: Progress Note -Hospitalist Dr. Duenas 62 y.o male seen and evaluated at bedside 1 day s/p incision drainage of L hip with partial excision of L trochanteric bursa, aspiration of L hip with abx beads placement with wound application secondary to infected surgical wound dehiscence. Patient is seen resting comfortably in bed, in NAD, and AA0x3. Patient reports no pain at the moment. Patient denies n/v/sob/cp/chills or f. Denies calf pain. Denies urinary problems or bowel movements. Offers no new complaints at this time. Objective - Vital Signs/Intake and Output Vital Signs (last 24 hours): Temp Pulse Resp BP Pulse Ox 98.2 F 79 18 139/83 96 10/26/17 09:00 10/26/17 10:44 10/26/17 08:27 10/26/17 09:34 10/26/17 10:44 Intake and Output: 10/26/17 10/26/17 06:59 18:59 Intake Total 400 Balance 400 - Medications Medications: Current Medications Vancomycin HCl 1 gm/ Sodium (Chloride) 250 mls @ 166.667 mls/hr IVPB Q12 PRISCILLA PRN Reason: Protocol Last Admin: 10/26/17 10:49 Dose: Not Given Lactated Ringer's (Lactated Ringer's) 1,000 mls @ 100 mls/hr IV .Q10H [facility] Last Admin: 10/26/17 01:20 Dose: Not Given Metoprolol Succinate (Toprol Xl) 50 mg PO BID [facility] Last Admin: 10/26/17 09:34 Dose: 50 mg Morphine Sulfate (Morphine) 1 mg IVP Q4 PRN PRN Reason: Pain, Mild (1-3) Last Admin: 10/26/17 13:09 Dose: 1 mg Morphine Sulfate (Morphine) 2 mg IVP Q4 PRN PRN Reason: Pain, moderate (4-7) Last Admin: 10/25/17 20:18 Dose: 2 mg Zolpidem Tartrate (Ambien) 5 mg PO HS PRN PRN Reason: Insomnia Last Admin: 10/25/17 22:52 Dose: 5 mg - Labs Labs: 10/26/17 05:45 10/25/17 05:30 PT 15.0 Seconds (9.8-13.1) H 10/26/17 05:45 INR 1.3 (0.9-1.2) H 10/26/17 05:45 APTT 32.0 Seconds (25.6-37.1) 10/25/17 05:30 - Constitutional Appears: Well, Non-toxic, No Acute Distress - Head Exam Head Exam: ATRAUMATIC, NORMAL INSPECTION, NORMOCEPHALIC - Eye Exam Eye Exam: EOMI, Normal appearance, PERRL Pupil Exam: NORMAL ACCOMODATION - ENT Exam ENT Exam: Mucous Membranes Moist, Normal Exam - Neck Exam Neck Exam: Normal Inspection - Respiratory Exam Respiratory Exam: Clear to Ausculation Bilateral, NORMAL BREATHING PATTERN. absent: Rales, Rhonchi, Wheezes, Respiratory Distress, Stridor - Cardiovascular Exam Cardiovascular Exam: REGULAR RHYTHM, +S1, +S2 - GI/Abdominal Exam GI & Abdominal Exam: Soft, Normal Bowel Sounds. absent: Tenderness - Extremities Exam Extremities Exam: absent: Calf Tenderness - Neurological Exam Neurological Exam: Alert, Awake, Oriented x3 - Psychiatric Exam Psychiatric exam: Normal Affect, Normal Mood - Skin Additional comments: Dressing to the L lateral hip remains c/d/i without strikethrough noted No abscess, no hematoma, no fluctanance No significant increase in calor Warm, temperature gradient WNL No tenderness upon palpation surrounding surgical site Wound VAC therapy is on at continuos of 125mmHg No drainage noted in the canister during the time of visitation: 0cc Assessment and Plan - Assessment and Plan (Free Text) Assessment: 62 y.o male with PMH of aflutter and HTN seen and evaluated at bedside 1 day s/ p incision drainage of L hip with partial excision of L trochanteric bursa, aspiration of L hip with abx beads placement with wound application secondary to infected surgical wound dehiscence. Plan: 1. Left hip wound infection s/p incision drainage of L hip with partial excision of L trochanteric bursa, aspiration of L hip with abx beads placement with wound application c/w Vanco 1gm Q 12hrs -ID Dr. Yoel menendez 4-6 weeks IV abx -Pt has PICC line placed pain manageable PT- recommends continued skill therapy care 2. A flutter rate controlled resume Coumadin c/w Metoprolol 3 DVT Prophylaxis resume Coumadin
[2017-10-27 07:00] LABS: INR 1.1 (0.9-1.2); PROTHROMBIN TIME 12.3 Seconds (9.8-13.1)
[2017-10-27 07:41] VITALS: BP 124/89; PULSE 79; RESP 19; TEMP 98.4; O2SAT 98
[2017-10-27] MEDS: Metoprolol Succinate 50 mg XL Tab PO SCH (08:49)
--- NOTE | 2017-10-27 09:14 | OP ---
PROCEDURE DATE: 10/25/2017 PREOPERATIVE DIAGNOSIS: Draining superficial left hip. POSTOPERATIVE DIAGNOSES: 1. Superficial drainage of the left hip with wound dehiscence. 2. No evidence of deep sepsis clinically, able to move the hip without pain, the patient has been afebrile. PROCEDURES: 1. Incision and drainage of the left hip wound. 2. Partial trochanteric bursectomy. 3. Aspiration of the left hip. 4. Insertion of antibiotic impregnated pellets. 5. Partial excision of trochanteric bursa. 6. Application of Prevena wound VAC. 7. Positioning of fluoroscope and interpretation of video images. 8. Manipulation of the hip under fluoroscopy. SURGEON: Mau Esteban MD AUTOMOTIVE CONSULTANT: Macy Khanna, certified registered nursing malt specifications control assistant. The operative goal could not have been achieved without the assistance-ship of Macy Khanna, certified registered nursing malt specifications control assistant. ANESTHESIA: General endotracheal anesthesia by Dr. Desir. COMPLICATIONS: No complications. DRAINS: No drains. OPERATIVE INDICATIONS: Philipp Ge is a gentleman as I said above well known to my practice, who presents after successful revision of total hip replacement arthroplasty in 2014. The patient now presents with spontaneous drainage. Pros, cons, risks, and benefits of surgical approach were discussed. Possibility of mechanical failure, infection, thromboembolic disease, secondary or tertiary surgery was discussed. The concept of possible explantation was discussed. Possibility of explantation and insertion of antibiotic impregnated spacer was discussed. The patient only wishes incision and drainage and wishes the retention of prosthesis at this point in time fully aware that it later may become necessary to explant the prosthesis and insert an antibiotic impregnated spacer. Pros, cons, risks, and benefits of the same were discussed. OPERATIVE PROCEDURE: After having obtained informed consent, after having identified side, site, and procedure and critical pause/time-out after the satisfactory induction of the anesthetic, the patient was placed in the direct right lateral decubitus position with the left side up. Under the surgeon's direction, the fluoroscope was positioned, video images were generated, therapeutic decisions were made therefrom. The patient was placed in the lateral decubitus position. The left lower extremity was prepped and free draped in the usual fashion for hip surgery and placed in the lateral decubitus position. After obtaining the fluoroscope under the surgeon's direction and with video images interpreted, therapeutic decisions were made therefrom. The initial incision is extended two fingerbreadths proximally and two fingerbreadths distally. Skin incision was carried down through the skin and subcutaneous tissue and muscle. There was found to be no evidence of communication deeply with the hip joint. This having been accomplished, using the spinal needle, the hip joint is introduced posteriorly to the neck of the prosthesis, approximately 10 mL of straw-colored fluid were obtained with no nicole evidence of purulence. These were sent down for aerobic, anaerobic, AFB and fungal cultures as well as stat Gram stain, number of white cells per high-power field. This having been accomplished, thorough irrigation and debridement was accomplished. Further trochanteric bursectomy was accomplished using the #10 blade cold-knife. Hemostasis was controlled with the Aquamantys and with the electrocautery. This having been accomplished, the hip was manipulated and then found to be stable in all planes under fluoroscopy. This having been accomplished, the wound was thoroughly irrigated with approximately 6 liters of antibiotic impregnated fluid. Vancomycin and gentamicin impregnated calcium sulfate beads were made and placed in the wound. Closure of the wound is with Vicryl and monica and a Prevena wound VAC was applied. The wound VAC seal was cut to fit the wound. The seal was accomplished and the drainage was removed. The Prevena wound VAC having been applied, compression dressing was applied. The patient was transferred from the OR table to the stretcher having tolerated the procedure well. Mau Esteban MD
--- NOTE | 2017-10-27 09:59 | CP.PCM.DIS ---
<Lavelle Pan - Last Filed: 10/27/17 16:42> Provider - Provider Date of Admission: 10/24/17 22:16 Attending physician: Andrey Hankins MD Consults: Orthopedics consult- Dr. Esteban Cardiology consult-Dr. Fox Infectious disease consult- Dr. Diallo Time Spent in preparation of Discharge (in minutes): 20 Diagnosis - Discharge Diagnosis (1) Left hip postoperative wound infection Status: Acute (2) Status post incision and drainage Status: Acute (3) Atrial flutter Status: Chronic Priority: Medium (4) HTN (hypertension) Status: Chronic Priority: Medium Hospital Course - Lab Results Lab Results: Micro Results 10/25/17 13:00 Hip - Left Gram Stain - Final 10/25/17 13:00 Hip - Left Wound Culture - Preliminary NO GROWTH AFTER 24 HOURS 10/25/17 13:00 Hip - Left Gram Stain - Final 10/25/17 13:00 Hip - Left Wound Culture - Preliminary Gram Positive Cocci 10/25/17 13:00 Hip - Left Gram Stain - Final 10/25/17 13:00 Hip - Left Wound Culture - Preliminary Gram Positive Cocci 10/25/17 13:00 Hip - Left Gram Stain - Final 10/25/17 13:00 Hip - Left Wound Culture - Preliminary NO GROWTH AFTER 24 HOURS 10/25/17 13:00 Hip - Left Gram Stain - Final 10/25/17 13:00 Hip - Left Wound Culture - Preliminary NO GROWTH AFTER 24 HOURS 10/25/17 13:00 Hip - Left Gram Stain - Final 10/25/17 13:00 Hip - Left Wound Culture - Preliminary Gram Positive Cocci 10/25/17 13:00 Hip - Left Gram Stain - Final 10/25/17 13:00 Hip - Left Wound Culture - Preliminary Gram Positive Cocci 10/25/17 13:00 Hip - Left Gram Stain - Final 10/25/17 13:00 Hip - Left Wound Culture - Preliminary Gram Positive Cocci 10/25/17 13:00 Body Fluid - Hip-Left Gram Stain - Final 10/25/17 13:00 Body Fluid - Hip-Left Body Fluid Culture - Preliminary NO GROWTH AFTER 24 HOURS 10/25/17 13:00 Other: Please Indicate Mycobacterial Culture - Preliminary Most Recent Lab Values WBC 8.4 K/uL (4.8-10.8) 10/26/17 05:45 RBC 4.33 Mil/uL (4.40-5.90) L 10/26/17 05:45 Hgb 11.6 g/dL (12.0-18.0) L 10/26/17 05:45 Hct 34.8 % (35.0-51.0) L 10/26/17 05:45 MCV 80.3 fl (80.0-94.0) 10/26/17 05:45 MCH 26.7 pg (27.0-31.0) L 10/26/17 05:45 MCHC 33.3 g/dL (33.0-37.0) 10/26/17 05:45 RDW 16.3 % (11.5-14.5) H 10/26/17 05:45 Plt Count 327 K/uL (130-400) 10/26/17 05:45 MPV 6.8 fl (7.2-11.7) L 10/25/17 05:30 Neut % (Auto) 50.2 % (50.0-75.0) 10/25/17 05:30 Lymph % (Auto) 27.7 % (20.0-40.0) 10/25/17 05:30 [place] % (Auto) 15.0 % (0.0-10.0) H 10/25/17 05:30 Eos % (Auto) 5.8 % (0.0-4.0) H 10/25/17 05:30 Baso % (Auto) 1.3 % (0.0-2.0) 10/25/17 05:30 Neut # (Auto) 3.0 K/uL (1.8-7.0) 10/25/17 05:30 Lymph # (Auto) 1.7 K/uL (1.0-4.3) 10/25/17 05:30 [place] # (Auto) 0.9 K/uL (0.0-0.8) H 10/25/17 05:30 Eos # (Auto) 0.3 K/uL (0.0-0.7) 10/25/17 05:30 Baso # (Auto) 0.1 K/uL (0.0-0.2) 10/25/17 05:30 ESR 81 mm/hr (0-20) H 10/24/17 21:45 PT 12.3 Seconds (9.8-13.1) 10/27/17 05:50 INR 1.1 (0.9-1.2) 10/27/17 05:50 APTT 32.0 Seconds (25.6-37.1) 10/25/17 05:30 Sodium 143 mmol/l (132-148) 10/25/17 05:30 Potassium 3.6 MMOL/L (3.6-5.0) 10/25/17 05:30 Chloride 106 mmol/L (98-107) 10/25/17 05:30 Carbon Dioxide 26 mmol/L (22-30) 10/25/17 05:30 Anion Gap 15 (10-20) 10/25/17 05:30 BUN 10 mg/dl (9-20) 10/25/17 05:30 Creatinine 0.7 mg/dl (0.8-1.5) L 10/25/17 05:30 Est GFR ( Amer) > 60 10/25/17 05:30 Est GFR (Non-Af Amer) > 60 10/25/17 05:30 Random Glucose 106 mg/dL (75-110) 10/25/17 05:30 Calcium 8.9 mg/dL (8.4-10.2) 10/25/17 05:30 Total Bilirubin 0.4 mg/dl (0.2-1.3) 10/24/17 21:45 AST 15 U/L (17-59) L 10/24/17 21:45 ALT 15 U/L (21-72) L D 10/24/17 21:45 Alkaline Phosphatase 93 U/L (38-126) 10/24/17 21:45 Total Protein 8.8 G/DL (6.3-8.2) H 10/24/17 21:45 Albumin 4.3 g/dL (3.5-5.0) 10/24/17 21:45 Globulin 4.5 gm/dL (2.2-3.9) H 10/24/17 21:45 Albumin/Globulin Ratio 1.0 (1.0-2.1) 10/24/17 21:45 Procalcitonin 0.05 NG/ML (0.19-0.49) L 10/25/17 17:50 Urine Color Straw (YELLOW) 10/24/17 21:50 Urine Clarity Slighty-cloudy (Clear) 10/24/17 21:50 Urine pH 6.0 (5.0-8.0) 10/24/17 21:50 Ur Specific [place] 1.014 (1.003-1.030) 10/24/17 21:50 Urine Protein 30 mg/dL (NEGATIVE) 10/24/17 21:50 Urine Glucose (UA) Neg mg/dL (Normal) 10/24/17 21:50 Urine Ketones Negative mg/dL (NEGATIVE) 10/24/17 21:50 Urine Blood Negative (NEGATIVE) 10/24/17 21:50 Urine Nitrate Negative (NEGATIVE) 10/24/17 21:50 Urine Bilirubin Negative (NEGATIVE) 10/24/17 21:50 Urine Urobilinogen 0.2-1.0 mg/dL (0.2-1.0) 10/24/17 21:50 Ur Leukocyte Esterase Neg Adi/uL (Negative) 10/24/17 21:50 Urine RBC (Auto) 1 /hpf (0-3) 10/24/17 21:50 Urine Microscopic WBC 1 /hpf (0-5) 10/24/17 21:50 Fluid Type Synovial fluid 10/25/17 13:00 Synovial WBC 689.0 /mm3 (0.0-150.0) H 10/25/17 13:00 Synovial RBC 5663.0 /mm3 (0.0-0.0) H 10/25/17 13:00 Synovial Neutrophils 72.0 % (0-0) H 10/25/17 13:00 Synovial Lymphocytes 17.0 % (0-0) H 10/25/17 13:00 Synov Monos/Macrophage 11 % (0-0) H 10/25/17 13:00 Synovial Fluid Comment Slighty bloody 10/25/17 13:00 Vancomycin Trough 9.5 ug/mL (5.0-10.0) 10/27/17 08:24 Blood Type B POSITIVE 10/24/17 21:14 Antibody Screen Negative 10/24/17 21:14 Crossmatch See Detail 10/24/17 21:14 BBK History Checked Patient has bt 10/24/17 21:14 - Hospital Course Hospital Course: 62 y.o male with PMH of HTN, A-flutter on Coumadin, and s/p left total hip arthroplasty with recurrent left hip infection including MRSA, admitted for infected surgical wound dehiscence. Ortho consulted- Dr. Esteban. Patient refuse L hip component removal at this time in which decision was made by Ortho to bring patient to OR for debridement and abx beads placement. Patient underwent incision drainage of L hip with partial excision of L trochanteric bursa, aspiration of L hip with abx beads placement with wound application secondary to infected surgical wound dehiscence on 10/25/17. Infectious Disease - Dr. Rabago recommended 6 weeks of IV Vancomycin. Patient had PICC line placed prior to this admission. Discussed with disability case manager. Will receive IV vanco with [employer] and blood work weekly. Home infusion company will work closely with Dr. Diallo to monitor vancomycin trough. Patient has clinically improved, hemodynamically stable and in NAD, and decision was made to discharge patient home. Patient will be sent home with wound vac therapy. Instructed to keep dressing c/d/i. Patient will f/u with Dr. Esteban within 1 week. Discharge Exam - Head Exam Head Exam: ATRAUMATIC, NORMAL INSPECTION, NORMOCEPHALIC - Eye Exam Eye Exam: EOMI, Normal appearance, PERRL Pupil Exam: NORMAL ACCOMODATION, PERRL - ENT Exam ENT Exam: Mucous Membranes Moist - Neck Exam Neck exam: Full Rom - Respiratory Exam Respiratory Exam: Clear to PA & Lateral, NORMAL BREATHING PATTERN. absent: Rales, Rhonchi, Wheezes, Respiratory Distress - Cardiovascular Exam Cardiovascular Exam: REGULAR RHYTHM, +S1, +S2 - GI/Abdominal Exam GI & Abdominal Exam: Normal Bowel Sounds, Unremarkable - Extremities Exam Additional comments: No calf tenderness with palpation or squeeze bilaterally. - Back Exam Back exam: NORMAL INSPECTION. absent: CVA tenderness (L), CVA tenderness (R) - Neurological Exam Neurological exam: Alert, Oriented x3 - Psychiatric Exam Psychiatric exam: Normal Affect, Normal Mood - Skin Skin Exam: Dry, Normal Color - Additional Findings Additional findings: Dressing to the L lateral hip remains c/d/i without strikethrough noted JOCELIN compression to the thigh is intact No abscess, no hematoma, no fluctanance No significant increase in calor Warm, temperature gradient WNL No tenderness upon palpation surrounding surgical site Wound VAC therapy is on at continuos of 125mmHg About 75cc of sangious drainage noted in the canister during the time of visitation Discharge Plan - Discharge Medications Prescriptions: Metoprolol Succinate [Toprol XL] 50 mg PO BID #60 tab Warfarin [Coumadin] 6 mg PO DAILY #30 tab - Follow Up Plan Condition: STABLE Disposition: HOME/ ROUTINE Patient education suggested?: Yes Instructions: Vancomycin (By injection), Peripherally Inserted Central Catheters and Midline Catheters (DC), Wound Dehiscence (DC), Incision and Drainage (DC), Negative Pressure Wound Therapy (GEN) Additional Instructions: changed current inhouse wPrevena vac attached,ound vac to home Prevena VAC -turned on and continuous at 125mmHg instructed to keep dressing c/d/i do not get wet f/u with Dr. Esteban in 1 week on Wednesday11/02/17 ronal infusion: [phone] c/w IV vanco infusion at home blood work weekly will be closely monitored by ID rx warafin rx metoprolol Referrals: Mau Esteban III, MD [Staff Provider] - Duke Fox MD [Staff Provider] - Chong Diallo MD [Medical Doctor] - <Roxana Louis - Last Filed: 10/28/17 15:43> Provider - Provider Date of Admission: 10/24/17 22:16 Attending physician: Andrey Hankins MD Hospital Course - Lab Results Lab Results: Micro Results 10/25/17 13:00 Hip - Left Gram Stain - Final 10/25/17 13:00 Hip - Left Wound Culture - Final Staphylococcus Aureus 10/25/17 13:00 Hip - Left Gram Stain - Final 10/25/17 13:00 Hip - Left Wound Culture - Final Staphylococcus Aureus 10/25/17 13:00 Hip - Left Gram Stain - Final 10/25/17 13:00 Hip - Left Wound Culture - Final Staphylococcus Aureus 10/25/17 13:00 Hip - Left Gram Stain - Final 10/25/17 13:00 Hip - Left Wound Culture - Final Staphylococcus Aureus 10/25/17 13:00 Hip - Left Gram Stain - Final 10/25/17 13:00 Hip - Left Wound Culture - Final Staphylococcus Aureus 10/25/17 13:00 Hip - Left Gram Stain - Final 10/25/17 13:00 Hip - Left Wound Culture - Final Staphylococcus Aureus 10/25/17 13:00 Hip - Left Gram Stain - Final 10/25/17 13:00 Hip - Left Wound Culture - Final Staphylococcus Aureus 10/25/17 13:00 Body Fluid - Hip-Left Gram Stain - Final 10/25/17 13:00 Body Fluid - Hip-Left Body Fluid Culture - Final Staphylococcus Aureus 10/25/17 13:00 Hip - Left Gram Stain - Final 10/25/17 13:00 Hip - Left Anaerobic Culture - Final NO ANAEROBES ISOLATED. 10/25/17 13:00 Hip - Left Wound Culture - Final Staphylococcus Aureus 10/25/17 13:00 Other: Please Indicate Anaerobic Culture - Final NO ANAEROBES ISOLATED. 10/25/17 13:00 Other: Please Indicate Mycobacterial Culture - Preliminary Most Recent Lab Values WBC 8.4 K/uL (4.8-10.8) 10/26/17 05:45 RBC 4.33 Mil/uL (4.40-5.90) L 10/26/17 05:45 Hgb 11.6 g/dL (12.0-18.0) L 10/26/17 05:45 Hct 34.8 % (35.0-51.0) L 10/26/17 05:45 MCV 80.3 fl (80.0-94.0) 10/26/17 05:45 MCH 26.7 pg (27.0-31.0) L 10/26/17 05:45 MCHC 33.3 g/dL (33.0-37.0) 10/26/17 05:45 RDW 16.3 % (11.5-14.5) H 10/26/17 05:45 Plt Count 327 K/uL (130-400) 10/26/17 05:45 MPV 6.8 fl (7.2-11.7) L 10/25/17 05:30 Neut % (Auto) 50.2 % (50.0-75.0) 10/25/17 05:30 Lymph % (Auto) 27.7 % (20.0-40.0) 10/25/17 05:30 [place] % (Auto) 15.0 % (0.0-10.0) H 10/25/17 05:30 Eos % (Auto) 5.8 % (0.0-4.0) H 10/25/17 05:30 Baso % (Auto) 1.3 % (0.0-2.0) 10/25/17 05:30 Neut # (Auto) 3.0 K/uL (1.8-7.0) 10/25/17 05:30 Lymph # (Auto) 1.7 K/uL (1.0-4.3) 10/25/17 05:30 [place] # (Auto) 0.9 K/uL (0.0-0.8) H 10/25/17 05:30 Eos # (Auto) 0.3 K/uL (0.0-0.7) 10/25/17 05:30 Baso # (Auto) 0.1 K/uL (0.0-0.2) 10/25/17 05:30 ESR 81 mm/hr (0-20) H 10/24/17 21:45 PT 12.3 Seconds (9.8-13.1) 10/27/17 05:50 INR 1.1 (0.9-1.2) 10/27/17 05:50 APTT 32.0 Seconds (25.6-37.1) 10/25/17 05:30 Sodium 143 mmol/l (132-148) 10/25/17 05:30 Potassium 3.6 MMOL/L (3.6-5.0) 10/25/17 05:30 Chloride 106 mmol/L (98-107) 10/25/17 05:30 Carbon Dioxide 26 mmol/L (22-30) 10/25/17 05:30 Anion Gap 15 (10-20) 10/25/17 05:30 BUN 10 mg/dl (9-20) 10/25/17 05:30 Creatinine 0.7 mg/dl (0.8-1.5) L 10/25/17 05:30 Est GFR ( Amer) > 60 10/25/17 05:30 Est GFR (Non-Af Amer) > 60 10/25/17 05:30 Random Glucose 106 mg/dL (75-110) 10/25/17 05:30 Calcium 8.9 mg/dL (8.4-10.2) 10/25/17 05:30 Total Bilirubin 0.4 mg/dl (0.2-1.3) 10/24/17 21:45 AST 15 U/L (17-59) L 10/24/17 21:45 ALT 15 U/L (21-72) L D 10/24/17 21:45 Alkaline Phosphatase 93 U/L (38-126) 10/24/17 21:45 Total Protein 8.8 G/DL (6.3-8.2) H 10/24/17 21:45 Albumin 4.3 g/dL (3.5-5.0) 10/24/17 21:45 Globulin 4.5 gm/dL (2.2-3.9) H 10/24/17 21:45 Albumin/Globulin Ratio 1.0 (1.0-2.1) 10/24/17 21:45 Procalcitonin 0.05 NG/ML (0.19-0.49) L 10/25/17 17:50 Urine Color Straw (YELLOW) 10/24/17 21:50 Urine Clarity Slighty-cloudy (Clear) 10/24/17 21:50 Urine pH 6.0 (5.0-8.0) 10/24/17 21:50 Ur Specific [place] 1.014 (1.003-1.030) 10/24/17 21:50 Urine Protein 30 mg/dL (NEGATIVE) 10/24/17 21:50 Urine Glucose (UA) Neg mg/dL (Normal) 10/24/17 21:50 Urine Ketones Negative mg/dL (NEGATIVE) 10/24/17 21:50 Urine Blood Negative (NEGATIVE) 10/24/17 21:50 Urine Nitrate Negative (NEGATIVE) 10/24/17 21:50 Urine Bilirubin Negative (NEGATIVE) 10/24/17 21:50 Urine Urobilinogen 0.2-1.0 mg/dL (0.2-1.0) 10/24/17 21:50 Ur Leukocyte Esterase Neg Adi/uL (Negative) 10/24/17 21:50 Urine RBC (Auto) 1 /hpf (0-3) 10/24/17 21:50 Urine Microscopic WBC 1 /hpf (0-5) 10/24/17 21:50 Fluid Type Synovial fluid 10/25/17 13:00 Synovial WBC 689.0 /mm3 (0.0-150.0) H 10/25/17 13:00 Synovial RBC 5663.0 /mm3 (0.0-0.0) H 10/25/17 13:00 Synovial Neutrophils 72.0 % (0-0) H 10/25/17 13:00 Synovial Lymphocytes 17.0 % (0-0) H 10/25/17 13:00 Synov Monos/Macrophage 11 % (0-0) H 10/25/17 13:00 Synovial Fluid Comment Slighty bloody 10/25/17 13:00 Vancomycin Trough 9.5 ug/mL (5.0-10.0) 10/27/17 08:24 Blood Type B POSITIVE 10/24/17 21:14 Antibody Screen Negative 10/24/17 21:14 Crossmatch See Detail 10/24/17 21:14 BBK History Checked Patient has bt 10/24/17 21:14 Attending/Attestation - Attestation I have personally seen and examined this patient.: Yes I have fully participated in the care of the patient.: Yes I have reviewed all pertinent clinical information, including history, physical exam and plan: Yes Notes (Text): 10/28/17 15:43 Seen, examined, discussed with resident Dr. Pan, agree with findings and plan as above.
--- NOTE | 2017-10-27 10:42 | CP.PCM.PN ---
Subjective - Date & Time of Evaluation Date of Evaluation: 10/27/17 Time of Evaluation: 07:30 - Subjective Subjective: NO NEW COMPLAINTS Objective - Vital Signs/Intake and Output Vital Signs (last 24 hours): Temp Pulse Resp BP Pulse Ox 98.4 F 79 19 124/89 98 10/27/17 07:41 10/27/17 08:49 10/27/17 07:41 10/27/17 08:49 10/27/17 07:41 Intake and Output: 10/27/17 10/27/17 06:59 18:59 Output Total 250 50 Balance -250 -50 - Medications Medications: Current Medications Vancomycin HCl 1 gm/ Sodium (Chloride) 250 mls @ 166.667 mls/hr IVPB Q12 PRISCILLA PRN Reason: Protocol Last Admin: 10/26/17 21:47 Dose: 166.667 mls/hr Lactated Ringer's (Lactated Ringer's) 1,000 mls @ 100 mls/hr IV .Q10H COUNT INCLUDES THE [facility] Last Admin: 10/26/17 01:20 Dose: Not Given Metoprolol Succinate (Toprol Xl) 50 mg PO BID COUNT INCLUDES THE [facility] Last Admin: 10/27/17 08:49 Dose: 50 mg Morphine Sulfate (Morphine) 1 mg IVP Q4 PRN PRN Reason: Pain, Mild (1-3) Last Admin: 10/26/17 13:09 Dose: 1 mg Morphine Sulfate (Morphine) 2 mg IVP Q4 PRN PRN Reason: Pain, moderate (4-7) Last Admin: 10/27/17 06:41 Dose: 2 mg Zolpidem Tartrate (Ambien) 5 mg PO HS PRN PRN Reason: Insomnia Last Admin: 10/26/17 23:21 Dose: 5 mg - Labs Labs: 10/26/17 05:45 10/25/17 05:30 PT 12.3 Seconds (9.8-13.1) 10/27/17 05:50 INR 1.1 (0.9-1.2) 10/27/17 05:50 APTT 32.0 Seconds (25.6-37.1) 10/25/17 05:30 - Respiratory Exam Respiratory Exam: Clear to Ausculation Bilateral - Cardiovascular Exam Cardiovascular Exam: REGULAR RHYTHM, +S1 Assessment and Plan - Assessment and Plan (Free Text) Assessment: S/P LEFT HIP REPLACEMENT WITH I AND D CHRONIC ATRIAL FIBRILLATION Plan: CONTINUE METOPROLOL PATIENT TO RESUME COUMADIN AT HOME AND FU WITH HIS LOCAL [facility]
--- NOTE | 2017-10-27 16:12 | CP.PCM.PN ---
Subjective - Date & Time of Evaluation Date of Evaluation: 10/27/17 Time of Evaluation: 11:00 - Subjective Subjective: Patient seen and examined OOB to chair comfortable. Pain well controlled. Tolerating diet well. No acute events overnight. Objective - Vital Signs/Intake and Output Vital Signs (last 24 hours): Temp Pulse Resp BP Pulse Ox 98.4 F 79 19 124/89 98 10/27/17 07:41 10/27/17 08:49 10/27/17 07:41 10/27/17 08:49 10/27/17 07:41 Intake and Output: 10/27/17 10/27/17 06:59 18:59 Output Total 250 100 Balance -250 -100 - Medications Medications: Current Medications Vancomycin HCl 1 gm/ Sodium (Chloride) 250 mls @ 166.667 mls/hr IVPB Q12 PRISCILLA PRN Reason: Protocol Last Admin: 10/26/17 21:47 Dose: 166.667 mls/hr Lactated Ringer's (Lactated Ringer's) 1,000 mls @ 100 mls/hr IV .Q10H [facility] Last Admin: 10/26/17 01:20 Dose: Not Given Metoprolol Succinate (Toprol Xl) 50 mg PO BID [facility] Last Admin: 10/27/17 08:49 Dose: 50 mg Morphine Sulfate (Morphine) 1 mg IVP Q4 PRN PRN Reason: Pain, Mild (1-3) Last Admin: 10/26/17 13:09 Dose: 1 mg Morphine Sulfate (Morphine) 2 mg IVP Q4 PRN PRN Reason: Pain, moderate (4-7) Last Admin: 10/27/17 14:49 Dose: 2 mg Zolpidem Tartrate (Ambien) 5 mg PO HS PRN PRN Reason: Insomnia Last Admin: 10/26/17 23:21 Dose: 5 mg - Labs Labs: 10/26/17 05:45 10/25/17 05:30 PT 12.3 Seconds (9.8-13.1) 10/27/17 05:50 INR 1.1 (0.9-1.2) 10/27/17 05:50 APTT 32.0 Seconds (25.6-37.1) 10/25/17 05:30 - Constitutional Appears: No Acute Distress - Extremities Exam Additional comments: Left hip: Prevena dressings well intact. No tenderness, mild serosang drainage from [employer] Vac, sensation grossly intact, motor intact EHL/FHL/ankle dorsi and plantarflex/quad/hs/hip flex, calves soft and NT b/l - Neurological Exam Neurological Exam: Alert, Awake, Oriented x3 Assessment and Plan (1) Left hip prosthetic joint infection Status: Acute - Assessment and Plan (Free Text) Assessment: -Prevena vac attached, keep dressing on until office f/u visit -Abx as per ID -clear to discharge to home -f/u in office on WednesdayNov 02. -case d/w Dr. Esteban
--- NOTE | 2017-10-27 17:10 | CP.PCM.PN ---
Subjective - Date & Time of Evaluation Date of Evaluation: 10/27/17 Time of Evaluation: 16:57 - Subjective Subjective: I D NOTE PATIENT IS BEING DISCHARGED HAVE DISCUSSED TREATMENT IN DETAIL c HIM AND HOME [facility] INITIALLY VANCOMYCIN 1 GM IVPB Q12H WILL HAVE AT LEAST WEEKLY CBC,CMP, AND VANCOMYCIN TROUGH LEVELS HE WILL HAVE TROUGH DONE ON WEDNESDAY, [facility] WILL CALL ME c RESULTS Objective - Vital Signs/Intake and Output Vital Signs (last 24 hours): Temp Pulse Resp BP Pulse Ox 98.4 F 79 19 124/89 98 10/27/17 07:41 10/27/17 08:49 10/27/17 07:41 10/27/17 08:49 10/27/17 07:41 Intake and Output: 10/27/17 10/27/17 06:59 18:59 Output Total 250 100 Balance -250 -100 - Medications Medications: Current Medications Vancomycin HCl 1 gm/ Sodium (Chloride) 250 mls @ 166.667 mls/hr IVPB Q12 PRISCILLA PRN Reason: Protocol Last Admin: 10/27/17 12:00 Dose: 166.667 mls/hr Lactated Ringer's (Lactated Ringer's) 1,000 mls @ 100 mls/hr IV .Q10H [facility] Last Admin: 10/26/17 01:20 Dose: Not Given Metoprolol Succinate (Toprol Xl) 50 mg PO BID [facility] Last Admin: 10/27/17 08:49 Dose: 50 mg Morphine Sulfate (Morphine) 1 mg IVP Q4 PRN PRN Reason: Pain, Mild (1-3) Last Admin: 10/26/17 13:09 Dose: 1 mg Morphine Sulfate (Morphine) 2 mg IVP Q4 PRN PRN Reason: Pain, moderate (4-7) Last Admin: 10/27/17 14:49 Dose: 2 mg Zolpidem Tartrate (Ambien) 5 mg PO HS PRN PRN Reason: Insomnia Last Admin: 10/26/17 23:21 Dose: 5 mg - Labs Labs: 10/26/17 05:45 10/25/17 05:30 PT 12.3 Seconds (9.8-13.1) 10/27/17 05:50 INR 1.1 (0.9-1.2) 10/27/17 05:50 APTT 32.0 Seconds (25.6-37.1) 10/25/17 05:30
== END 2017-10-27 17:05 | disposition home or self-care (01) | DRG 857 ==
LOC: H.ER 18:16 → H.ERHOLD 22:16 → H.MEDSURG1 23:49
PROVIDERS: ADMIT Internal Medicine; ATTEND Internal Medicine
PROC: 0S9B0ZX Drainage of Left Hip Joint, Open Approach, Diagnostic (ICD-10-PCS; 2017-10-25)
PROC: 3E0U029 Introduction of Other Anti-infective into Joints, Open Approach (ICD-10-PCS; 2017-10-25)
PROC: 0MBM0ZZ Excision of Left Hip Bursa and Ligament, Open Approach (ICD-10-PCS; principal; 2017-10-25 14:00)
PROC: 0S9B0ZZ Drainage of Left Hip Joint, Open Approach (ICD-10-PCS; 2017-10-25 14:00)
DX: T81.4XXA Infection following a procedure, initial encounter (principal); T81.31XA Disruption of external operation (surgical) wound, not elsewhere classified, initial encounter; I11.0 Hypertensive heart disease with heart failure; I50.9 Heart failure, unspecified; I48.92 Unspecified atrial flutter; Z79.01 Long term (current) use of anticoagulants; E78.00 Pure hypercholesterolemia, unspecified; F17.210 Nicotine dependence, cigarettes, uncomplicated; Z96.642 Presence of left artificial hip joint; Y83.8 Other surgical procedures as the cause of abnormal reaction of the patient, or of later complication, without mention of misadventure at the time of the procedure; M70.62 Trochanteric bursitis, left hip; I48.2 Chronic atrial fibrillation; B95.62 Methicillin resistant Staphylococcus aureus infection as the cause of diseases classified elsewhere